=== PATIENT | female | born 1955 | race Two or more races ===

== ENCOUNTER 2018-02-13 05:23 | Day surgery (SDC) | payer OTHER ==
[~2018-02-13 05:23] MED LIST: BUPROPION PO; CITRACAL PETITES PO; CLONAZEPAM2 MG PO; DONEPEZIL HCL10 MG PO; ETODOLAC400 MG PO; GABAPENTIN400 MG PO; LITHIUM CARBON300 M1 PO; NAMENDA10 MG PO; NEURIN SL PO; OMEPRAZOLE40 MG PO; OXYBUTYNIN CHLOR5 MG PO; SERTRALINE HCL100 MG PO; SYNTHROID88 MCG PO; VIT PO; VITAMIN D3
== END 2018-02-13 17:45 | disposition home or self-care (01) ==
LOC: CIR.AMB 05:23
DX: D07.1 Carcinoma in situ of vulva (principal); N76.2 Acute vulvitis